=== PATIENT | male | born 1995 | race Caucasian/White ===

== ENCOUNTER 2023-11-27 19:56 | Emergency (ER) | payer SELFPAY ==
[2023-11-27 20:06] VITALS: BP 146/85
--- NOTE | 2023-11-27 21:20 | ED.GENMED ---
History of Present Illness
<Pako Tai MD - Last Filed: 11/27/23 22:26>
General
Chief Complaint: Skin Surface Trauma
Time Seen by Provider: 11/27/23 20:45
<EMMA Brock - Last Filed: 11/27/23 21:30>
General
Source: patient
Exam Limitations: none
Travel History
Have you had any contact with someone who has COVID-19?: No
Do you have any symptoms of coronavirus? Fever > 100 degrees, chills, cough, shortness of breath, sore throat, loss of taste or smell, muscle aches, or headache?: No
History of Present Illness
History of Present Illness:
This is a 28 year old male that comes in with multiple complaints. States that he cut his thumb a week ago and the thumb is healing fine. However, he cut it with a razor blade and he has noticed that his BP is all over the place and he has felt
dizzy. States that he has muscle discomfort in his jaw over the past couple of days that only occurs at night. States that he had a headache yesterday and was lightheaded. Denies any fever, chills, chest pain, SOB, abd pain, nausea, vomiting,
diarrhea, urinary burning.
<EMMA Brock - Last Filed: 11/27/23 21:30>
Past History
ED Past Medical History: GERD and HTN
ED Past Surgical History: Orthopedic (Back surgery)
Social History
Tobacco: Smoker
Alcohol: Occasional
Personal:
Living: alone
<EMMA Brock - Last Filed: 11/27/23 21:30>
Review of Systems
All Other Systems: ROS reviewed and negative except as documented in HPI and ROS
Constitutional: Reports no symptoms; Denies fever or chills
EENT: Reports no symptoms
Cardiac: Reports no symptoms
ABD/GI: Reports no symptoms; Denies abdominal pain, nausea, vomiting or diarrhea
: Reports no symptoms; Denies dysuria, frequency or urgency
Musculoskeletal: Reports other (Jaw pain only at night)
Skin: Reports no symptoms
Neurological: Reports headache (Yesterday, ) and other (Lightheaded); Denies dizzy
Psychiatric: Reports no symptoms
<EMMA Brock - Last Filed: 11/27/23 21:30>
General Physical Exam
General Presentation: well appearing and no apparent distress
General age: appears stated age
General Skin: warm and dry
General Habitus: normal
General Mental: alert
General Hydration: appears well hydrated
ENT Exam
ENT Exam: TM's normal, pharynx normal and neck supple
Eye Exam
Eye Exam: EOMI
Cardiovascular Exam
Cardiovascular Exam: regular rate/rhythm, no edema, no murmur and normal peripheral pulses
Pulmonary Exam
Pulmonary Exam: lungs clear, no respiratory distress, no rales, chest non tender, no crackles, no rhonchi, no wheezing and no cough
Gastrointestinal Exam
Gastrointestinal Exam: normal bowel sounds, non tender, soft, no organomegaly, no pulsatile mass and non distended
Musculoskeletal Exam
Musculoskeletal Exam: full ROM, no edema and other (Negative for palpation over the jaw. Patient able to open his mouth)
Skin Exam
Skin Exam: normal color, warm/dry, no rash and no petechia
Psychiatric Exam
Psychiatric Exam: normal mood/affect
Course
<Pako Tai MD - Last Filed: 11/27/23 22:26>
Orders/Labs/Results
Orders:
Orders
11/27/23 20:55
Tetanus/Diphth/Acelpertussis [Adacel] 0.5 ml IM .ONCE ONE
Vital Signs
Initial and Last Documented VS:
Initial Vital Signs
Temp Pulse Resp BP Pulse Ox
98.2 F 88 18 146/85 97
11/27/23 20:06 11/27/23 20:06 11/27/23 20:06 11/27/23 20:06 11/27/23 20:06
Last Documented Vital Signs
Temp Pulse Resp BP Pulse Ox
98.2 F 88 18 146/85 97
11/27/23 20:06 11/27/23 20:06 11/27/23 20:06 11/27/23 20:06 11/27/23 20:06
<EMMA Brock - Last Filed: 11/27/23 21:30>
Orders/Labs/Results
Orders:
Orders
11/27/23 20:55
Tetanus/Diphth/Acelpertussis [Adacel] 0.5 ml IM .ONCE ONE
Vital Signs
Initial and Last Documented VS:
Initial Vital Signs
Temp Pulse Resp BP Pulse Ox
98.2 F 88 18 146/85 97
11/27/23 20:06 11/27/23 20:06 11/27/23 20:06 11/27/23 20:06 11/27/23 20:06
Last Documented Vital Signs
Temp Pulse Resp BP Pulse Ox
98.2 F 88 18 146/85 97
11/27/23 20:06 11/27/23 20:06 11/27/23 20:06 11/27/23 20:06 11/27/23 20:06
<EMMA Brock - Last Filed: 11/27/23 21:30>
MDM/Problems Addressed
Differential Diagnosis Includes:
Grinding Teeth , Stress
MDM/Problems Addressed:
This is a 28 year old male that comes in with c/o muscle soreness in the jaw just at night. States that he cut his finger a weeks ago and this is fine but he was googling and his friends told him to come get checked.
Explained to patient that this does not look like Locked Jaw as he only has discomfort at night. Explained that he may be grinding his teeth which causes discomfort. Patient to follow up with his dentist. . Patient was also seen by Dr. Tai. Will
give patient a tetanus and discharge home.
Chronic conditions affecting care:
NA
Acute Exacerbation and/or Progression of Chronic Illness:
NA
<EMMA Brock - Last Filed: 11/27/23 21:30>
*Pulse Oximetry
Patient hypoxic: no
*EKG
Interpreted by ED Provider?: NA
Rate: EKG- N/A
*Automation Tech Interpretation
Rate: Automation Tech- N/A
*Critical Care Note
Total Time (30-74mins, 75-104mins- exclusive of procedures): Not Applicable
ED Attending Note
<Pako Tai MD - Last Filed: 11/27/23 22:26>
ED Attending Note
Patient seen and examined by attending physician: Yes
ED Attending Note:
Patient presents to ED for evaluation after accidentally cutting his finger with 'dirty razor blade' 1 week ago. Wound has healed since the incident. However, patient has noted intermittent jaw discomfort over the past 3 days along with headache.
When patient looked up and Internet, his symptoms were concerning for tetanus reaction. As such, patient wanted to be checked out. Denies difficulty with eating. Denies difficulty speaking. Denies any muscle pain. Denies blurred vision. Denies
loss of sensation or weakness. Patient unsure of his last tetanus vaccination.
Physical Exam
General: no apparent distress, not acutely ill. afebrile.
Head: nc/at. eomi
Neck: supple. normal range of motion.
Neuro: alert and oriented. no focal neurological deficits
Skin: right thumb: approx 3cm healing laceration noted over volar surface of distal phalanx without open drainage. there is continuation of separation.
Psychiatric: well kept. interactive and cooperative
Extremities: no edema. no calf tenderness. no trismus noted.
History and exam inconsistent with tetanus reaction. Patient's tetanus status updated. Advised PCP follow-up as an outpatient.
<EMMA Brock - Last Filed: 11/27/23 21:30>
-
Portions of this chart may have been created with voice recognition software.� Occasional wrong word or��sound alike� substitutions may have occurred due to the inherent limitations of voice recognition software.
Discharge Plan
Departure
Patient Disposition: Home (Routine Discharge)
Date of Disposition: 11/27/23
Time of Disposition: 21:28
Patient with high blood pressure during this ER visit?: Yes
Condition: Good
Covid-19: Not Applicable
Discharge Problem:
Jaw pain
Instructions: BLOOD PRESSURE
Prescriptions:
No Action
cyclobenzaprine 10 MG tablet
10 mg PO HSPRN PRN (Reason: muscle tightness, spasms) Qty: 7 0RF
meloxicam 7.5 MG tablet
7.5 mg PO DAILY Qty: 7 0RF
Activity Restrictions/Additional Instructions:
As discussed, your discomfort may be due to stress that is causing your to grind your teeth. This is not lock jaw. You have been given a tetanus injection. Please follow up with your dentist and your family doctor for reccheck. IF YOU HAVE ANY OTHER
CONCERNS PLEASE RETURN TO THE EMERGENCY ROOM.
Interventions
Interventions:
*Risk Screen - Suicide Last Done: 11/27/23 20:08
*General Assessment Last Done: 11/27/23 20:08
*Neglect/Abuse Screening Last Done: 11/27/23 20:08
*Nursing Disposition Last Done: 11/27/23 22:04
ED-Skin Assessment Last Done: 11/27/23 22:03
Discharge Date and Time
Discharge Date/Time: 11/27/23 22:04
[2023-11-27] MEDS: ADACEL 0.5 ML IM (21:57)
== END 2023-11-27 22:04 | disposition home or self-care (01) ==
LOC: EMR 19:56
PROVIDERS: EMERGENCY PHYSICIAN Emergency Medicine
DX: R68.84 Jaw pain (principal); R51.9 Headache, unspecified; R42 Dizziness and giddiness; I10 Essential (primary) hypertension; K21.9 Gastro-esophageal reflux disease without esophagitis; F17.200 Nicotine dependence, unspecified, uncomplicated; Z88.1 Allergy status to other antibiotic agents
CPT/HCPCS: 99282; 90471; 90715